=== PATIENT | male | born 1980 | race African-American/Black ===

== ENCOUNTER 2017-06-01 19:42 | Inpatient (IN) | payer MEDICAID, OTHER ==
--- NOTE | 2017-06-01 20:16 | ED ---
Psych HPI - General Chief Complaint: Psychiatric Symptoms Stated Complaint: Mental Health Time Seen by Provider: 06/01/17 20:03 Source: patient Mode of arrival: ambulatory - History of Present Illness Initial Comments: This 36-year-old white male presents with a complaint of depression. He states that he has been depressed for quite some time. He is having some suicidal ideations with a plan of potentially overdosing. He also complains of a problem of alcohol abuse. He apparently has been drinking up to 4 bottles of wine per day. He has been drinking heavily for last 7 months but has been worse over the last 2 months. He has tried multiple different drugs but never heroin or cocaine. His significant other gave him a milligram of Ativan from her medications prior to coming in as he has not had a drink in the last 24 hours. He denies going through any significant alcohol withdrawal but is never drink this heavily before either. He has no current medical complaints. No other modifying factors. - Related Data Home Medications Medication Instructions Recorded Confirmed Loratadine [Claritin] 10 mg PO DAILY PRN 06/01/17 06/01/17 Allergies Allergy/AdvReac Type Severity Reaction Status Date / Time No Known Allergies Allergy Verified 06/01/17 20:24 Review of Systems ROS Statement: Those systems with pertinent positive or pertinent negative responses have been documented in the HPI. ROS Other: All systems not noted in ROS Statement are negative. Past Medical History Past Medical History: No Reported History Additional Past Surgical History / Comment(s): bilat hernia repairs, right knee problems. Past Psychological History: ADD/ADHD, Depression Smoking Status: Former smoker Past Alcohol Use History: Abuse, Daily, Heavy Past Drug Use History: Cocaine, Marijuana, Methamphetamine, Opiates, Prescription Drug Abuse General Exam - General Exam Comments Initial Comments: GENERAL: The patient is well nourished and well hydrated. VITAL SIGNS: Heart rate, blood pressure, respiratory rate reviewed as recorded in nurse's notes. EYES: Pupils are round and reactive. Extraocular movements are intact. No conjunctival / lid redness or swelling. ENT: No external evidence of injury, swelling, or ecchymosis. Airway is patent. Throat is clear. NECK: Nontender. No swelling or evidence of injury. No subcutaneous emphysema. Trachea is midline. No thyroid mass. HEART: Regular rate and rhythm. Good peripheral pulses. LUNGS/CHEST: Breath sounds clear and equal bilaterally. No rales, rhonchi, or wheezes. No ecchymosis, subcutaneous emphysema, or tenderness. ABDOMEN: Abdomen soft without tenderness. No palpable masses or organomegaly. No peritoneal signs. No abdominal wall swelling or ecchymosis. EXTREMITIES: No extremity tenderness. Normal muscle tone and function. No thoracolumbar tenderness. NEUROLOGIC: Sensation is grossly intact. Cranial nerve exam reveals face is symmetrical, tongue is midline, speech is clear. SKIN: No abrasions or ecchymosis is noted. No induration or masses noted. PSYCHIATRIC: Alert and oriented. Flat affect noted. Limitations: no limitations Course Vital Signs 06/01/17 19:45 Temperature 97.3 F L Pulse Rate 87 Respiratory 17 Rate Blood Pressure 127/73 O2 Sat by Pulse 99 Oximetry Medical Decision Making - Medical Decision Making The patient was seen and examined. All diagnostics are reviewed. It is felt as though he is significantly depressed and having some suicidal ideations. It is felt as though he would benefit from further psychiatric evaluation. Psychiatric consult is placed. The patient is medically cleared for further psychiatric treatment. The case is discussed with the psychiatric nurse and they would like to admit him to the hospital. He was complaining of some mild stomach upset at one time and does receive a GI cocktail as well as some Protonix intravenously. He also received 1 mg of Ativan intravenously as he states that he is feeling slightly shaky. The psychiatric nurse is filling out a petition and I am filling out a certification. He will be held in the ER until a bed becomes available for further psychiatric treatment. - Lab Data Lab Results 06/01/17 Range/Units 20:23 Urine Opiates Screen Not Detected (NotDetected) Ur Oxycodone Screen Not Detected (NotDetected) Urine Methadone Screen Not Detected (NotDetected) Ur Propoxyphene Screen Not Detected (NotDetected) Ur Barbiturates Screen Not Detected (NotDetected) U Tricyclic Antidepress Not Detected (NotDetected) Ur Phencyclidine Scrn Not Detected (NotDetected) Ur Amphetamines Screen Detected H (NotDetected) U Methamphetamines Scrn Not Detected (NotDetected) U Benzodiazepines Scrn Detected H (NotDetected) Urine Cocaine Screen Detected H (NotDetected) U Marijuana (THC) Screen Detected H (NotDetected) Disposition Clinical Impression: Depression, Alcohol abuse, Suicidal ideation, Alcohol withdrawal Disposition: ADMITTED IP TO THIS HOSP Condition: Fair Referrals: None,Stated [Primary Care Provider] - 1-2 days Time of Disposition: 22:50 Decision Date: 06/01/17 Decision Time: 22:50
[2017-06-01] MEDS ORDERED: MAG HYDROX/AL HYDROX/SIMETH 30 ML, HYOSCYAMINE ELIXIR 10 ML, CIMETIDINE HCL 300 MG, LID... PO STA ×4 (20:31)
[2017-06-01 20:42] LABS: Amphetamine Screen,Urine Detected (NotDetected); Barbiturate Screen,Urine Not Detected (NotDetected); Benzodiazepines Screen,Urine Detected (NotDetected); Cocaine Screen,Urine Detected (NotDetected); Methadone Screen, Urine Not Detected (NotDetected); Opiate Screen,Urine Not Detected (NotDetected); Oxycodone Screen, Urine Not Detected (NotDetected); Phencyclidine Screen,Urine Not Detected (NotDetected); Tricyclic Antidepressant,Urine Not Detected (NotDetected); Urn Cannabinoid Scrn Detected (NotDetected)
[2017-06-01] MEDS ORDERED: LORazepam 2 MG/ML INJ IV PRN ×4 (22:46)
[2017-06-01] MEDS ORDERED: THIAMINE 100 MG/ML 2 ML VIAL IM STA (22:46)
[2017-06-01] MEDS ORDERED: PANTOPRAZOLE 40 MG/10 ML VIAL IVP STA (22:47)
[2017-06-01] MEDS ORDERED: ONDANSETRON 4 MG/2 ML VIAL IVP PRN (22:47)
[2017-06-01] MEDS ORDERED: LORazepam 2 MG/ML INJ IV STA (22:47)
[2017-06-01] MEDS ORDERED: SODIUM CHLORIDE 0.9% 1,000 ML IV STA (22:50)
[2017-06-02 03:56] LABS: Appearance,Urine Clear (Clear); Bilirubin,Urine Negative (Negative); Blood,Urine Negative (Negative); Color,Urine Yellow; Glucose,Urine (UA) Negative (Negative); Ketones,Urine Negative (Negative); Leukocyte Esterase,Urine Negative (Negative); Nitrite,Urine Negative (Negative); Protein,Urine Negative (Negative); Specific Gravity,Urine 1.013 (1.001-1.035); Urobilinogen,Urine <2.0 mg/dL (<2.0)
[2017-06-02 04:13] LABS: HCT 42.2 % (39.0-53.0); HGB 13.6 gm/dL (13.0-17.5); MCH 29.5 pg (25.0-35.0); MCHC 32.2 g/dL (31.0-37.0); MCV 91.6 fL (80.0-100.0); Mean Platelet Volume 7.2; Platelet Count 308 k/uL (150-450); RDW 13.5 % (11.5-15.5); WBC 6.3 k/uL (3.8-10.6)
[2017-06-02 04:27] LABS: Anion Gap 5 mmol/L; Blood Urea Nitrogen 11 mg/dL (9-20); Calcium 8.9 mg/dL (8.4-10.2); Carbon Dioxide 29 mmol/L (22-30); Chloride 106 mmol/L (98-107); Glucose 94 mg/dL (74-99); Sodium 140 mmol/L (137-145)
[2017-06-02 04:36] LABS: Potassium 4.3 mmol/L (3.5-5.1)
[2017-06-02] MEDS ORDERED: PANTOPRAZOLE 40 MG/10 ML VIAL IVP SCH (09:00)
[2017-06-02] MEDS ORDERED: MULTIVITAMINS, THERA 1 EACH TAB PO SCH (12:00)
[2017-06-02] MEDS ORDERED: THIAMINE 100 MG TAB PO SCH (12:00)
[2017-06-02] MEDS ORDERED: MAG HYDROX/AL HYDROX/SIMETH 30 ML CUP PO PRN (13:38)
[2017-06-02] MEDS ORDERED: LORazepam 1 MG TAB PO PRN (13:38)
[2017-06-02] MEDS ORDERED: ZIPRASIDONE 20 MG VIAL IM PRN (13:38)
[2017-06-02] MEDS ORDERED: MAGNESIUM HYDROXIDE 2,400 MG/10 ML CUP PO PRN (13:38)
[2017-06-02] MEDS ORDERED: ACETAMINOPHEN TAB 325 MG TAB PO PRN (13:38)
[2017-06-02 14:35] VITALS: BMI 26.3
[2017-06-02] MEDS ORDERED: LORazepam 1 MG TAB PO STA (15:26)
[2017-06-02] MEDS ORDERED: ONDANSETRON 4 MG TAB PO PRN (15:29)
[2017-06-02] MEDS ORDERED: CALCIUM CARBONATE 500 MG CHEWABLE PO PRN (15:29)
--- NOTE | 2017-06-02 15:47 | P.HPMEDMHU ---
History of Present Illness H&P Date: 06/02/17 Chief Complaint: alcohol abuse/depression Patient is a 36-year-old -[place] male with a past medical history of arthritis, alcohol abuse, and illicit drug use who presented to the ER with complaints of depression. In the ER he underwent a general laboratory screening which revealed a UDS positive for benzos, opiates, cocaine, and methamphetamine. He has since been admitted to the mental health unit for suicidal ideation. patient seen and examined at bedside. He reports that for the last 2 months he has been drinking approximately 4 bottles of wine daily. Prior to this he was drinking 2 beers daily and the significant amount of alcohol the weekends. He began drinking to self medicate for his depression. His depression started when he found out his mother had cancer in his ed would not let him take the kids to [place]. He has been considering suicide including slitting his wrists or overdose. He reports that for the last week or so he has been having nausea, diarrhea, and belly pain. He describes the belly pain as being his right upper quadrant and midline. It is worse when he eats or lays flat. He also complains of some indigestion. He is also noted some swelling of his right upper gum last 1-1/2 months. Sometimes it is tender and more swollen than others. Denies any fevers or chills. He states that his last drink was approximately 36 hours ago. It has been several months since he has gone without drinking. The longest time he can think of is 2 days and he did experience some signs of alcohol withdrawal with anxiety, fidgetiness, and sweating. He has no other acute complaint. He denies any chest pain, shortness of breath, and dysuria. Intermittent diffuse tingling- not stocking/ glove distribution. Review of Systems Pertinent positives and negatives as per HPI, all other 12 point review of systems is negative. Past Medical History Past Medical History: Musculoskeletal Disorder Additional Past Medical History / Comment(s): Pt. reports having bone on bone contact in his right knee causing chronic pain issues History of Any Multi-Drug Resistant Organisms: None Reported Past Surgical History: Hernia Repair Additional Past Surgical History / Comment(s): bilateral inguinal hernia repairs Past Anesthesia/Blood Transfusion Reactions: No Reported Reaction Past Psychological History: ADD/ADHD, Depression Smoking Status: Former smoker Past Alcohol Use History: Abuse, Daily, Heavy Additional Past Alcohol Use History / Comment(s): Pt. reports drinking 4 bottles of wine a day Past Drug Use History: Cocaine, Marijuana, Methamphetamine, Opiates, Prescription Drug Abuse - Past Family History Father Additional Family Medical History / Comment(s): father from prostate cancer at age 54 Mother Additional Family Medical History / Comment(s): Currently with cancer, patient unsure if it is stomach or liver Medications and Allergies Home Medications Medication Instructions Recorded Confirmed Type Loratadine [Claritin] 10 mg PO DAILY PRN 06/01/17 06/01/17 History Allergies Allergy/AdvReac Type Severity Reaction Status Date / Time No Known Allergies Allergy Verified 06/01/17 20:24 Physical Exam Osteopathic Statement: *. No significant issues noted on an osteopathic structural exam other than those noted in the History and Physical/Consult. Vitals: Vital Signs Temp Pulse Pulse Resp BP BP Pulse Ox 06/02/17 14:22 97.7 F 75 18 146/76 06/02/17 13:29 97.2 F L 89 18 132/63 98 06/02/17 07:54 97.0 F L 61 18 111/53 97 06/01/17 23:20 56 L 18 119/72 95 06/01/17 19:45 97.3 F L 87 17 127/73 99 Intake and Output 06/02/17 06/02/17 06/02/17 06:59 14:59 22:59 Other: Weight 98.089 kg Patient Weight 06/03/17 06:59 Weight 98.089 kg General: non toxic, no distress, appears at stated age, normal weight Derm: no unusual rashes/lesions no unusual ecchymoses, warm, dry, multiple tattoos, ear piercing on right Head: atraumatic, normocephalic, symmetric Eyes: EOMI, no lid lag, anicteric sclera, pupils equal round reactive to light ENT: Nose and ears atraumatic, no thrush, no pharyngeal erythema Neck: No thyromegaly, no cervical lymphadenopathy, trachea midline, supple Mouth: no lip lesion, mucus membranes moist, large dental nick Right upper incisor no swelling of the gum, no purulent discharge, no crepitus over gum area Cardiovascular: S1S2 reg, no murmur, positive posterior tibial pulse bilateral, no edema, capillary refill less than 2 seconds Lungs: CTA bilateral, no rhonchi, no rales , no accessory muscle use Abdominal: soft, + tenderness to palpation right upper quadrant and epigastric , no guarding, no appreciable organomegaly, normal bowel sounds Ext: no gross muscle atrophy, muscle strength 5 out of 5 in all 4 extremities grossly, no contractures, Neuro: CN II-XI grossly intact, light touch intact all 4 extremities, finger to nose within normal limits, Psych: Alert, oriented, flat affect Cranial Nerve Examination - Cranial Nerves Cranial Nerve II- Optic: Intact Cranial Nerve III- Oculomotor: Intact Cranial Nerve IV- Trochlear: Intact Cranial Nerve V- Trigeminal: Intact Cranial Nerve - Abducens: Intact Cranial Nerve VII- Facial: Intact Cranial Nerve VIII- Auditory: Intact Cranial Nerve IX- Glossopharyngeal: Intact Cranial Nerve X- Vagus: Intact Cranial Nerve XI- Accessory: Intact Cranial Nerve XII- Hypoglossal: Intact Results CBC & Chem 7: 06/02/17 04:00 06/02/17 04:00 Labs: Abnormal Lab Results - Last 24 Hours (Table) 06/01/17 Range/Units 20:23 Ur Amphetamines Screen Detected H (NotDetected) U Benzodiazepines Scrn Detected H (NotDetected) Urine Cocaine Screen Detected H (NotDetected) U Marijuana (THC) Screen Detected H (NotDetected) Thrombosis Risk Factor Assmnt - DVT/VTE Prophylaxis DVT/VTE Prophylaxis: Low risk, early ambulation encouraged - Choose All That Apply Any of the Below Risk Factors Present?: No Other Risk Factors: Yes Each Risk Factor Represents 3 Points: Family history of DVT/PE Other congenital or acquired thrombophilia - If yes, enter type in comment: No Thrombosis Risk Factor Assessment Total Risk Factor Score: 3 Thrombosis Risk Factor Assessment Level: Moderate Risk Assessment and Plan Assessment: Alcohol abuse with impending withdrawal -Ativan 1 mg by mouth 1 now, then management as per psychiatry -Thiamine, folic acid, and multivitamin supplementation - Check liver profile -Monitor for signs of withdrawal Alcoholic gastritis -PPI twice a day -When necessary Tums for recurrent indigestion Arthritis with chronic right knee pain -Treatment with Tylenol -Would avoid NSAIDs at this point in time giving his abdominal pain Seasonal ALLERGIES -When necessary Claritin Depression with suicidal ideation -Your psych management Severe dental carries - f/u as outpatient, nursing will give the patient info. Thank you for allowing us to participate in the care of this patient. We will follow peripherally after one of my partners refuse his labs that were just ordered, if abnormal will re-see patient. Do not hesitate to contact us with questions. Someone can be reached from the [facility] hospitalist group at all hours of the day at [phone].
[2017-06-02] MEDS ORDERED: LORATADINE 10 MG TAB PO PRN (15:52)
[2017-06-02] MEDS: PANTOPRAZOLE 40 MG TABLET PO SCH (17:58)
[2017-06-02] MEDS: THIAMINE 100 MG TAB PO SCH (20:31)
[2017-06-03] MEDS: PANTOPRAZOLE 40 MG TABLET PO SCH ×2 (08:43→16:57)
[2017-06-03] MEDS: THIAMINE 100 MG TAB PO SCH ×2 (08:43→21:53)
[2017-06-03 09:46] LABS: ALT 82 U/L (21-72); AST 44 U/L (17-59); Albumin 4.2 g/dL (3.5-5.0); Alkaline Phosphatase 45 U/L (38-126); Anion Gap 9 mmol/L; Blood Urea Nitrogen 12 mg/dL (9-20); Calcium 9.9 mg/dL (8.4-10.2); Carbon Dioxide 32 mmol/L (22-30); Chloride 100 mmol/L (98-107); Cholesterol 147 mg/dL (<200); Glucose 105 mg/dL (74-99); HDL Cholesterol 69 mg/dL (40-60); LDL Cholesterol,Calculated 60 mg/dL (0-99); Potassium 4.3 mmol/L (3.5-5.1); Sodium 141 mmol/L (137-145); Total Bilirubin 0.5 mg/dL (0.2-1.3); Total Protein 7.1 g/dL (6.3-8.2); Triglycerides 91 mg/dL (<150)
[2017-06-03] MEDS: FOLIC ACID 1 MG TAB PO SCH (11:49)
[2017-06-03] MEDS: MULTIVITAMINS, THERA 1 EACH TAB PO SCH (11:49)
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
[2017-06-03] MEDS: OLANZapine 5 MG TAB PO SCH ×2 (13:51→21:54)
[2017-06-03] MEDS: cloNIDine HCL 0.1 MG TAB PO SCH ×2 (13:51→21:53)
[2017-06-03] MEDS: NALTREXONE HCL 50 MG TAB PO SCH (13:51)
[2017-06-04 07:12] VITALS: RESP 16
[2017-06-04] MEDS: OLANZapine 5 MG TAB PO SCH ×2 (09:08→21:10)
[2017-06-04] MEDS: cloNIDine HCL 0.1 MG TAB PO SCH ×2 (09:08→21:10)
[2017-06-04] MEDS: NALTREXONE HCL 50 MG TAB PO SCH (09:08)
[2017-06-04] MEDS: THIAMINE 100 MG TAB PO SCH ×2 (09:08→21:10)
[2017-06-04] MEDS: PANTOPRAZOLE 40 MG TABLET PO SCH ×2 (09:08→16:31)
[2017-06-04] MEDS: MULTIVITAMINS, THERA 1 EACH TAB PO SCH (09:09)
[2017-06-04] MEDS: FOLIC ACID 1 MG TAB PO SCH (09:09)
--- NOTE | 2017-06-04 19:28 | PN ---
PROGRESS NOTE DATE OF SERVICE: 06/04/2017. CHIEF COMPLAINT: The patient was depressed. He had suicide thoughts. He had increasing problems over the last 6 months with drinking. He had hopeless feelings. INTERVAL HISTORY: Patient has been doing fair. He had a quiet evening last night. He slept fair today. He has been up and about. He attends groups. He says that the groups have been helpful for him to have some personal reflection. He has made contact with [facility] and will be entering the program on Thursday. He notes that he is motivated to addressing his drinking issues. He is hopeful of being discharged soon so that he can spend a little bit of time with his 2 children, whom he has not seen since he has been back to [place]. He acknowledges that his mood is still down, though he seems to have fairly good insight into the idea that withdrawal issues are likely the most immediate thing to be addressed. We discussed expectations for his treatment program. The patient has not had change in his general health. He tolerates his psychotropic medications. MENTAL STATUS: Patient gave good eye contact. Psychomotor activity was slow. Speech was monotone. He answered questions with clear responses. His affect was blunted, his mood reserved. It was difficult to say how distressed he may be. ASSESSMENT: I will continue the current diagnosis and treatment plan, continue psychotropic medications the same. I reviewed issues relating to substance withdrawal. We discussed discharge planning issues. It might be appropriate for the patient to be discharged tomorrow in anticipation of his entering a treatment program on Thursday. We will continue to focus on stabilization and discharge planning. MERARY / NATHANAELN: [id number] /
[2017-06-05 05:21] VITALS: BP 109/67; PULSE 77; TEMP 98.3
[2017-06-05] MEDS: THIAMINE 100 MG TAB PO SCH (09:10)
[2017-06-05] MEDS: cloNIDine HCL 0.1 MG TAB PO SCH (09:10)
[2017-06-05] MEDS: OLANZapine 5 MG TAB PO SCH (09:10)
[2017-06-05] MEDS: NALTREXONE HCL 50 MG TAB PO SCH (09:10)
[2017-06-05] MEDS: PANTOPRAZOLE 40 MG TABLET PO SCH (09:10)
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
[2017-06-05] MEDS: FOLIC ACID 1 MG TAB PO SCH (11:24)
[2017-06-05] MEDS: MULTIVITAMINS, THERA 1 EACH TAB PO SCH (11:25)
== END 2017-06-05 13:55 | disposition home or self-care (01) | DRG 885 ==
LOC: EC 19:42 → 3MHU 06-02 13:29
PROVIDERS: ADMIT Psychiatry & Neurology Psychiatry; ATTEND Psychiatry & Neurology Psychiatry
DX: F33.2 Major depressive disorder, recurrent severe without psychotic features (principal); R45.851 Suicidal ideations; F10.239 Alcohol dependence with withdrawal, unspecified; F12.288 Cannabis dependence with other cannabis-induced disorder; F41.9 Anxiety disorder, unspecified; F90.9 Attention-deficit hyperactivity disorder, unspecified type; F11.10 Opioid abuse, uncomplicated; F13.10 Sedative, hypnotic or anxiolytic abuse, uncomplicated; F15.10 Other stimulant abuse, uncomplicated; K02.9 Dental caries, unspecified; K29.20 Alcoholic gastritis without bleeding; M17.11 Unilateral primary osteoarthritis, right knee; Z83.2 Family history of diseases of the blood and blood-forming organs and certain disorders involving the immune mechanism; Z81.8 Family history of other mental and behavioral disorders; Z80.42 Family history of malignant neoplasm of prostate; Z80.0 Family history of malignant neoplasm of digestive organs; Z87.891 Personal history of nicotine dependence; Z63.8 Other specified problems related to primary support group
CPT/HCPCS: 36415; 80048; 80053; 80061; 80306; 81003; 82075; 82607; 84443; 85027; 96360; 96361; 96372; 96374; 96375; 96376; 99285